=== PATIENT | female | born 1970 | race Caucasian/White ===

== ENCOUNTER 2022-02-10 19:43 | Emergency (ER) | payer BC ==
[2022-02-10] MEDS ORDERED: XYLOCAINE 1% HCL 20 ML MDV ONE (20:05)
[2022-02-10 20:07] VITALS: BP 123/83; PULSE 80; O2SAT 96
[2022-02-10] MEDS ORDERED: Adacel Vial IM ONE ×2 (20:12→20:16)
[2022-02-10] MEDS ORDERED: XYLOCAINE 1% HCL 20 ML MDV IJ ONE (20:13)
--- NOTE | 2022-02-10 20:16 | ERPHSYRPT ---
- History of Present Illness Source: patient, other () Exam Limitations: no limitations Patient Subjective Stated Complaint: I cut my thumb with a knife cutting apart chicken strips Triage Nursing Assessment: pt ambulated into ER, spouse at bedside. Pt was cutting apart frozen chicken breasts with a new, sharp knife and cut her left thumb, starting at the top of it down the side, approx 4cm in length. Small amount of bleeding noted. Pt is able to move her thumb without diff. 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 Pt is R handed and denies other injuries at this time. Tdap will be given in the ER. Occurred: just prior to arrival Method of Injury: incised Quality: constant Severity of Pain-Max: moderate Severity of Pain-Current: mild Extremities Pain Location: thumb: left Modifying Factors: Improves With: movement Associated Symptoms: none Allergies/Adverse Reactions: No Known Drug Allergies Allergy (Unverified 02/10/22 19:57) Hx Tetanus, Diphtheria Vaccination/Date Given: No Hx Influenza Vaccination/Date Given: No Hx Pneumococcal Vaccination/Date Given: No Immunizations Up to Date: No Travel Risk - International Travel Have you traveled outside of the country in past 3 weeks: No - Coronavirus Screening Are you exhibiting any of the following symptoms?: No Close contact with a COVID-19 positive Pt in past 14-21 Days: No - Vaccine Status Have you recieved a Covid-19 vaccination: No - Review of Systems Constitutional: No Symptoms Eyes: No Symptoms Ears, Nose, & Throat: No Symptoms Respiratory: No Symptoms Cardiac: No Symptoms Abdominal/Gastrointestinal: No Symptoms Genitourinary Symptoms: No Symptoms Skin: No Symptoms Neurological: No Symptoms Psychological: No Symptoms Endocrine: No Symptoms Hematologic/Lymphatic: No Symptoms Immunological/Allergic: No Symptoms - Past Medical History Pertinent Past Medical History: Yes Neurological History: Migraines, Peripheral Neuropathy, Other ENT History: No Pertinent History Cardiac History: High Cholesterol Respiratory History: No Pertinent History Endocrine Medical History: Hypothyroidism Musculoskeletal History: No Pertinent History GI Medical History: Gallbladder Disease History: No Pertinent History Psycho-Social History: Depression Female Reproductive Disorders: No Pertinent History Other Medical History: Essential tremor. dementia - Past Surgical History Past Surgical History: Yes Gastrointestinal: Cholecystectomy - Social History Smoking Status: Former smoker Exposure to second hand smoke: Yes Drug Use: none Patient Lives Alone: No - Female History Hx Now: No - Nursing Vital Signs Nursing Vital Signs: Initial Vital Signs Temperature 96.0 F 02/10/22 19:48 Pulse Rate 73 02/10/22 19:48 Respiratory Rate 20 02/10/22 19:48 Blood Pressure 125/86 02/10/22 19:48 O2 Sat by Pulse Oximetry 95 02/10/22 19:48 Pain Scale Pain Intensity 4 WNL - Physical Exam General Appearance: no apparent distress Eyes, Ears, Nose, Throat Exam: normal ENT inspection Neck Exam: normal inspection, non-tender Cardiovascular/Respiratory Exam: normal breath sounds, regular rate/rhythm, heart sounds normal Abdominal Exam: non-tender Back Exam: normal inspection, normal range of motion Shoulder Exam: normal inspection Elbow/Forearm Exam: normal inspection Wrist Exam: normal inspection Hand Exam: laceration (Avulsion injury L distal 1st digit/Good distal capillary return and sensation/Good hemostasis) Neuro/Tendon Exam: normal sensation, normal motor functions, normal tendon functions, responds to pain Mental Status Exam: alert, oriented x 3, cooperative Skin Exam: normal color, warm, dry SpO2 Interpretation: normal SpO2: 96 O2 Delivery: Room Air Procedures - Laceration/Wound Repair Left Distal Finger Time of Procedure: 20:42 Wound Location: Left (Distal 1st digit) Wound Length (cm): 4 Wound's Depth, Shape: flap Wound Explored: clean Irrigated: Yes (Soaked in Hibiclens and scrubbed gently) Hibiclens Prep: Yes Anesthesia: digital block, 1% Lidocaine Volume Anesthetic (ccs): 3 Wound Repaired With: sutures (5.0 Ethilon c7) Suture Size/Type: 5-0, nylon Number of Sutures: 7 Layer Closure?: No Sterile Dressing Applied?: Yes Splint Applied?: No Sling Applied?: No - Course Nursing assessment & vital signs reviewed: Yes Ordered Tests: Medication Summary Discontinued Medications Generic Name Dose Route Start Last Admin Trade Name Freq PRN Reason Stop Dose Admin Hydrocodone Bitart/Acetaminophen 2 tab 02/10/22 20:49 02/10/22 21:01 Hydrocodone/Apap 5/325 1 Tab Tablet PO 02/10/22 20:50 2 tab SENT HOME W/ PATIENT ONE Administration Hydrocodone Bitart/Acetaminophen Confirm 02/10/22 21:00 Hydrocodone/Apap 5/325 1 Tab Tablet Administered 02/10/22 21:01 Dose 2 tab .ROUTE .STK-MED ONE Diphtheria/Tetanus/Acell Pertussis 0.5 ml 02/10/22 20:12 02/10/22 20:17 Tdap --Diph,Pertuss(Acell),Tet Vac/Pf 0.5 Ml Vial IM 02/10/22 20:13 0.5 ml .ONCE ONE Administration Diphtheria/Tetanus/Acell Pertussis Confirm 02/10/22 20:16 Tdap --Diph,Pertuss(Acell),Tet Vac/Pf 0.5 Ml Vial Administered 02/10/22 20:17 Dose 0.5 ml IM .STK-MED ONE Lidocaine HCl Confirm 02/10/22 20:05 Lidocaine Hcl 1% 20 Ml Mdv 20 Ml Ml Administered 02/10/22 20:06 Dose 5 ml .ROUTE .STK-MED ONE Lidocaine HCl 5 ml 02/10/22 20:13 02/10/22 20:18 Lidocaine Hcl 1% 20 Ml Mdv 20 Ml Ml IJ 02/10/22 20:14 5 ml STAT ONE Administration - Progress Progress: improved Counseled pt/family regarding: diagnosis, need for follow-up - Departure Departure Disposition: Home Clinical Impression: Finger laceration Condition: Stable Critical Care Time: No Referrals: LENNIE ZAPATA [Primary Care Provider] - Follow up/PCP as directed Instructions: Wound Care (DC), Laceration Repair With Stitches (DC) Additional Instructions: Keep laceration dry for 2 days, then wash 1-2 times a day with soap/water Sutures out in 10 days Watch for signs of infection-increasing redness/any pus/temperature greater than 100.5/Increasing swelling Keflex 3 times a day for 1 week Motrin/Tylenol for pain Prescriptions: Cephalexin Mh 500 mg [Keflex 500 mg] 500 mg PO TID 7 Days #21 cap
[2022-02-10] MEDS ORDERED: NORCO 5/325 MG PO ONE (20:49)
[2022-02-10] MEDS ORDERED: NORCO 5/325 MG ONE (21:00)
== END 2022-02-10 21:09 | disposition home or self-care (01) ==
LOC: ED 19:43
DX: S61.012A Laceration without foreign body of left thumb without damage to nail, initial encounter (principal); W26.0XXA Contact with knife, initial encounter; Y93.G1 Activity, food preparation and clean up; E78.5 Hyperlipidemia, unspecified; Z28.310 Unvaccinated for COVID-19
CPT/HCPCS: 12002; 90471; 90715; 96372; 99283; A9270-GY

== ENCOUNTER 2022-05-25 08:29 | Day surgery (SDC) | payer BC ==
--- NOTE | 2022-05-23 13:24 | HP ---
DATE OF SURGERY: 05/25/2022 HISTORY OF PRESENT ILLNESS: The patient is a 51-year-old female presents with esophageal stricture. She has had some dilatation in the past. It is kind of tight in the mid chest. PAST MEDICAL HISTORY: Hypertension. Migraines. Dementia. Thyroid. Anxiety. PAST SURGICAL HISTORY: Cholecystectomy. ALLERGIES: NKDA. MEDICATIONS: Cyclobenzaprine, venlafaxine, propranolol, simvastatin, aspirin, Namenda. FAMILY HISTORY: Parkinson's. Coronary artery disease. Diabetes. SOCIAL HISTORY: Negative. REVIEW OF SYSTEMS: CONSTITUTIONAL: Denies fever or chills. CHEST: Denies shortness of breath. CVS: Denies chest pain. ABDOMEN: Denies abdominal pain. PHYSICAL EXAMINATION: GENERAL: No acute distress. CHEST: Nonlabored. No shortness of breath. CVS: Regular rate and rhythm. ABDOMEN: Soft. IMPRESSION: Dysphagia. PLAN: EGD with possible dilatation with Dr. Rk Poe. As dictated by Aaliyah Rutherford NP.
[2022-05-25 08:57] VITALS: O2SAT 97
[2022-05-25] MEDS ORDERED: Lactated Ringers 1,000 ML IV SCH (09:30)
[2022-05-25] MEDS ORDERED: DIPRIVAN 200 MG/20 ML IV ONE (11:08)
[2022-05-25] MEDS ORDERED: Xylocaine-Mpf 2% 5 Ml Vial ONE (11:08)
[2022-05-25] MEDS ORDERED: Versed 2 MG/2 ML Injection ONE (11:09)
[2022-05-25 11:57] VITALS: PULSE 59
[2022-05-25 12:20] VITALS: BP 97/63
--- NOTE | 2022-05-25 13:12 | OP ---
SURGERY DATE/TIME: 05/25/2022 1121 PREOPERATIVE DIAGNOSIS: Dysphagia. POSTOPERATIVE DIAGNOSIS: Dysphagia with stricture. PROCEDURE: EGD with Marie dilatation to size 48. SURGEON: Rk Poe M.D. ANESTHESIA: MAC. COMPLICATIONS: None. CONDITION: Stable. INDICATION: A patient requiring evaluation and possible dilatation. DESCRIPTION OF PROCEDURE: Taken to endoscopy. MAC sedation provided. Scope introduced. Pharyngoesophageal junction normal. Esophagus normal down to gastroesophageal junction. Grade 2 esophagitis as well as stricture about 40. Fundus, body and antrum normal. Pylorus normal. Duodenal bulb normal. Second portion normal. Scope withdrawn looped upon itself. Gastroesophageal junction 1 inch hiatal hernia and there was a size 40 stricture. Marie type 40 followed by a 48 was placed and the scope was placed. It was dilated satisfactorily. No suggestion of injury.
== END 2022-05-25 12:25 | disposition home or self-care (01) ==
LOC: SDC 08:29
PROVIDERS: ATTEND Surgery
DX: R13.14 Dysphagia, pharyngoesophageal phase (principal); K44.9 Diaphragmatic hernia without obstruction or gangrene
CPT/HCPCS: J2250; J2704